=== PATIENT | female | born 1965 | race Caucasian/White ===

== ENCOUNTER → 2025-04-21 | Outpatient (CLI) | payer OTHER, SELFPAY ==
--- NOTE | 2025-04-21 07:59 | MRI_ITS ---
PROCEDURE: UPPER EXT JOINT ONLY(ROUTINE) 04/21/2025 REASON FOR EXAM: LAT EPICONDYLITIS, NO IMPRPVING WITH CONSERV TECHNIQUE: UPPER EXT JOINT ONLY(ROUTINE) Multiplanar and multisequence images were obtained without IV contrast administration. COMPARISON: COMPARISON: January 01, 2025 FINDINGS: Ulnar collateral ligament is intact. Lateral collateral ligamentous complex is intact. Moderate common flexor and extensor tendinopathy at their humeral epicondyle attachments. Biceps, brachialis and triceps tendons are within normal limits. Negative for fracture, marrow edema or marrow replacement. No significant elbow joint effusion. No high-grade arthropathy. No bursal fluid collections. Visualized nerves are within normal limits. MRI/Upper Ext Joint Only(Routine) IMPRESSION: Moderate common flexor and extensor tendinopathy. Reading Location: [facility]
== END | disposition home or self-care (01) ==
LOC: MRI 07:58
PROVIDERS: PCP Family Medicine; Referring Provider Nurse Practitioner Family; Visit Provider Nurse Practitioner Family
DX: M77.02 Medial epicondylitis, left elbow (principal); M77.12 Lateral epicondylitis, left elbow
CPT/HCPCS: 73221

== ENCOUNTER 2025-05-28 10:30 | Outpatient (RCR) | payer OTHER, SELFPAY ==
--- NOTE | 2025-05-28 10:52 | HP.PTREVAL_ITS ---
Re-Evaluation Intro: Ayla Tristan, LARISSA-C, It has been my pleasure to treat PHILIP RODRÍGUEZ over the last 5 visits for L lateral epicondylitis. Please see the progress note below for an update on the physical therapy plan of care! Subjective Subjective: Pt. reports having increased pain with L elbow pain over the past few days. Pt. reports no N/T, but had mild increase in symptoms after stretching. Pt. reports overall not much change in symptoms with PT thus far. Objective Objective/Function: Pt. tolerated EPAT this date without adverse reaction. Pt. continues to be tender along her L elbow. Pt. reports stretching has not improved her symptoms and actually makes her symptoms worse. I talked to her about eccentrics today as well. I gave her 2# wrist eccentric extension today. She is to work on this at home. Pt. is to follow up with physician later today. I advised her to talk with her and trial eccentrics. Pt. consents. She does have some anterior elbow pain, not sure the cause, possibly due to tightness without straightening elbow out much. Plan Plan Plan: pt. to follow up with physician and trial eccentrics I at this point in ti me. Goals Goals Goal 1:: Patient will report no pain in the left elbow Goal Progress: Not Progressing Anticipated Interventions Anticipated Interventions Comment: Radial Shock Wave For the Purpose of:: To decrease pain Re-Evaluation Ending Re-evaluation ending: Please do not hesitate to contact me at [phone] by phone or Fax: if you have questions or concerns regarding this new plan of care! Sincerely, Nicholas Hicks DPT
--- NOTE | 2025-10-25 10:42 | HP.PT.NRP ---
Patient Information Patient Information: PHILIP RODRÍGUEZ was seen in my office for initial evaluation on . The following Plan of Care was established for this patient: Anticipated Interventions Comment: Radial Shock Wave For the Purpose of:: To decrease pain Last Seen Last Seen: This patient was last seen in our office . Pertinent comments regarding their Physical therapy will appear below: Pt appropriate to be d/c at this time- return to MD for further evaluation At this point I will be discontinuing this patient from physical therapy. I would be happy to see this patient again in the future if found appropriate by the physician. Thank you! OLINDA ParkerT
== END 2025-05-28 19:00 | disposition home or self-care (01) ==
LOC: PT 10:30
PROVIDERS: PCP Family Medicine; Referring Provider Nurse Practitioner Family; Visit Provider Nurse Practitioner Family
DX: M77.12 Lateral epicondylitis, left elbow (principal)

== ENCOUNTER 2025-07-11 09:42 | Day surgery (SDC) | payer OTHER, SELFPAY ==
--- NOTE | 2025-07-02 13:08 | PAT.ANE_ITS ---
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 When Was Last Pacemaker Check QUESTION #4 FULL TEXT: You/Your Family Experience fever (hyperthermia) with Anesthesia Last Oral Intake Last Oral intake: Last Oral Intake NPO since Meds taken in AM with sips of water? 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 Female Yes 07/02/25 11:01 HX of Motion Sickness No 07/02/25 11:01 HX of N/V After Surgery No 07/02/25 11:01 Non-Smoker Yes 07/02/25 11:01 Duration of Surgery greater Yes 07/02/25 11:01 than 60 minutes Number of Risk Factors 3 07/02/25 11:01 PONV Score Moderate Risk 07/02/25 11:01 Height & Weight Height & Weight: Anesthesia: Height & Weight Height 5 ft 8 in 03/28/25 07:58 Respiratory Assessment Respiratory Assessment - concrete grinder operator: Respiratory Tract Infection Hx - concrete grinder operator Hx Respiratory Tract Infection No 07/02/25 11:01 STOP Sleep Apnea STOP Sleep Apnea - concrete grinder operator: STOP Sleep Apnea - concrete grinder operator Hx Hypertension Yes: CONTROLLED WITH MED 07/02/25 11:01 Hx Sleep Apnea Yes 07/02/25 11:01 CPAP Yes 07/02/25 11:01 BIPAP No 07/02/25 11:01 Do you snore loudly (louder than talking or can be heard Do you often feel tired/ fatigued/ sleepy during daytime? Has anyone observed you stop breathing during sleep? STOP Results Positive 07/02/25 11:01 QUESTION #5 FULL TEXT : Do you snore loudly (louder than talking or can be heard through closed doors)? 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 Specify any problems Hx of Preganancy in last 3 No 07/02/25 11:01 Months Nurse Filling Out Transfusion DSCHRIBER 07/02/25 11:01 & Questions: Date: 07/02/25 07/02/25 11:01 Time: 11:03 07/02/25 11:01 Patient unable to answer at this time (ie. confused, unrespo /Reproduction History /Reproductive History - concrete grinder operator: /Reproductive Hx- concrete grinder operator Hx Now No 07/02/25 11:01 Gestational Age (in weeks): EDC: Hx Hx Para Hx Section SAB No 07/02/25 11:01 [facility] Medical History (Updated 07/02/25 @ 11:17 by Gertrude Dennis) Wears glasses Post-menopausal High cholesterol History of steroid therapy Back pain Seizures History of IBS Shortness of breath on exertion CPAP (continuous positive airway pressure) dependence Non-smoker History of pain when walking History of edema History of echocardiogram History of stress test Cardiology follow-up encounter Hypertension Hx of low back pain Afib Home Medications ?Medication ?Instructions ?Recorded ?Last Taken ?Type divalproex 250 mg tablet,extended 250 mg PO DAILY 12/09 10/24 Unknown History release 24 hr atorvastatin 20 mg tablet 20 mg PO QDAY 01/01/25 Unkno wn History furosemide 20 mg tablet 20 mg PO BID 01/01/25 Unknow n History potassium citrate 99 mg capsule 99 mg PO DAILY 5 Unknown History sotalol 120 mg tablet 120 mg PO BID 01/01/25 Unkno wn History apixaban 5 mg tablet (Eliquis) 5 mg PO BID 03/28/25 Un known History cyclobenzaprine 10 mg tablet 10 mg PO .prn PRN muscle spasm #30 03/28/25 Unknown Rx tabs psyllium husk 0.52 gram capsule 0.52 g PO DAILY Unknown History (Daily Fiber) biotin 10,000 mcg-keratin 100 mg 1 tab PO DAILY Unknown History tablet (Biotin Plus Keratin) magnesium glycinate 100 mg (as 100 mg PO DAILY 5 Unknown History glycinate) tablet (Mag Glycinate) Allergy/AdvReac Type Severity Reaction Status Date / Time contact metal agent Allergy Rash Verified 07/02/25 10:57 Penicillins Allergy Rash Verified 07/02/25 10:57 Sulfa (Sulfonamide Allergy Rash Verified 07/02/25 10:57 Antibiotics) adhesive tape AdvReac Other Verified 07/02/25 10:57 silver (From Argentum AdvReac Unknown Verified 07/02/25 10:57 Metallicum) Family History Mother Hypertension Father Hypertension Sister Hypertension Other Arthritis Surgical History (Updated 07/02/25 @ 11:12 by Gertrude Dennis) History of cardiac catheterization History of esophagogastroduodenoscopy (EGD) Hx of colonoscopy History of rotator cuff surgery History of cardiac radiofrequency ablation History of shoulder surgery History of hysterectomy Social History Smoking Status: Never smoker alcohol intake: current alcohol intake frequency: holidays/special occasions only Audit: Pertinent Findings Pertinent Findings EKG Perinent findings: 03/06/2025. Normal sinus rhythm 69 bpm. Stress test pertinent findings: 06/24/2020. Negative. EF 72%. Echo (EF%) pertinent findings: 2024. EF 55 to 60%. Normal size and function. Consult pertinent findings: [facility] 05/25/2025. Atrial fibrillation/paroxysmal. Currently in sinus. On Eliquis. Stable. Recommendation Anesthesia Recommendation Anesthesia recommendation: OPTIMIZED for anesthesia
[2025-07-11] VITALS (12 sets, daily range): BP systolic 124–157; BP diastolic 58–100; PULSE 55–74; RESP 14–18; TEMP 36.2–36.9; O2SAT 92–100; BMI 43.5
--- NOTE | 2025-07-11 12:16 | PCM.PRE.AN2 ---
ASA Classification* ASA Classification ASA Classification: 3 Assessment & Plan Anesthesia* Anesthesia Assessment Anesthesia Assessment: Discussed sedation and/or anesthesia options, risks, benefits, and alternatives with patient/parents/legal guardian/POA. Questions invited. The patient/parents/legal guardian/POA seems to understand and agrees to proceed with anesthesia plan. Reviewed the physical assessment, medical history, allergy history and patient home medications list prior to surgery/procedure/anesthetic and documented any changes. Performed airway and anesthesia risk assessments. Anesthesia Type Anesthesia Type: General History Source History Obtained from:: Patient and Chart Anesthesia Focused Assessment* Temperature: 97.5 F Pulse Rate: 58 Blood Pressure: 124/58 Respiratory Rate: 18 Pulse Ox: 98 Oxygen Delivery Method: Room Air Airway Assessment Mouth opens: >3 cm Mallampati Score: II Labs Anesthesia Preop lab: CBC WBC, (4.4-11.0) 11.1 K/mm3 H 12/19/13, 05:30 RBC, (4.2-5.4) 4.50 M/mm3 12/19/13, 05:30 Hgb, (12.0-15.0) 12.0 g/dl 12/19/13, 05:30 Hct, (37-47) 37.3 % 12/19/13, 05:30 Plt Count, (150-450) 257 K/mm3 12/19/13, 05:30 CHEMISTRY Creatinine, (0.6-1.0) 0.8 mg/dL 12/19/13, 05:30 COAG PT, (11.9-14.4) 12.5 SECONDS 12/11/13, 14:10 Pre-Assessment Diagnosis/Proposed Procedure Planned Operative Procedure(s): LEFT ELBOW ARTHROSCOPY DEBRIDEMENT Anesthesia History 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 When Was Last Pacemaker Check QUESTION #4 FULL TEXT: You/Your Family Experience fever (hyperthermia) with Anesthesia Last Oral Intake Last Oral intake: Last Oral Intake NPO since 07:30 07/11/25 11:52 Meds taken in AM with sips of Yes 07/11/25 11:52 water? 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 - refuse collector Female Yes 07/02/25 11:01 HX of Motion Sickness No 07/02/25 11:01 HX of N/V After Surgery No 07/02/25 11:01 Non-Smoker Yes 07/02/25 11:01 Duration of Surgery greater Yes 07/02/25 11:01 than 60 minutes Number of Risk Factors 3 07/02/25 11:01 PONV Score Moderate Risk 07/02/25 11:01 Height & Weight Height & Weight: Anesthesia: Height & Weight Height 5 ft 8 in 07/11/25 11:52 Weight: 130 kg 07/11/25 11:52 Body Mass Index (BMI) 43.5 07/11/25 11:52 Respiratory Assessment Respiratory Assessment - refuse collector: Respiratory Tract Infection Hx - refuse collector Hx Respiratory Tract Infection No 07/02/25 11:01 STOP Sleep Apnea STOP Sleep Apnea - refuse collector: STOP Sleep Apnea - refuse collector Hx Hypertension Yes: CONTROLLED WITH MED 07/02/25 11:01 Hx Sleep Apnea Yes 07/02/25 11:01 CPAP Yes 07/02/25 11:01 BIPAP No 07/02/25 11:01 Do you snore loudly (louder than talking or can be heard Do you often feel tired/ fatigued/ sleepy during daytime? Has anyone observed you stop breathing during sleep? STOP Results Positive 07/02/25 11:01 QUESTION #5 FULL TEXT : Do you snore loudly (louder than talking or can be heard through closed doors)? 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 Specify any problems Hx of Preganancy in last 3 No 07/02/25 11:01 Months Nurse Filling Out Transfusion DSCHRIBER 07/02/25 11:01 & Questions: Date: 07/02/25 07/02/25 11:01 Time: 11:03 07/02/25 11:01 Patient unable to answer at this time (ie. confused, unrespo /Reproduction History /Reproductive History - refuse collector: /Reproductive Hx- refuse collector Hx Now No 07/02/25 11:01 Gestational Age (in weeks): EDC: Hx Hx Para Hx Section SAB No 07/02/25 11:01 Active Medications Active Medications: Current Medications Generic Name Dose Route Start Last Admin Trade Name Freq PRN Reason Stop Dose Admin Cefazolin Sodium 3 gm/ Sodium 115 mls @ 200 mls/hr 07/11/25 13:00 07/11/25 11:50 Chloride IV 07/11/25 13:34 Not Given INTRAOP ONE Lactated Ringer's 1,000 mls @ 15 mls/hr 07/11/25 11:45 IV .Q48H MAXWELL PFSH Medical History Wears glasses Post-menopausal High cholesterol History of steroid therapy Back pain Seizures History of IBS Shortness of breath on exertion CPAP (continuous positive airway pressure) dependence Non-smoker History of pain when walking History of edema History of echocardiogram History of stress test Cardiology follow-up encounter Hypertension Hx of low back pain Afib Home Medications ?Medication ?Instructions ?Recorded ?Last Taken ?Type divalproex 250 mg tablet,extended 250 mg PO DAILY 12/19/13 07/11/25 History release 24 hr atorvastatin 20 mg tablet 20 mg PO QDAY 01/01/25 07/10/25 History furosemide 20 mg tablet 20 mg PO BID 01/01/25 07/10/25 History potassium citrate 99 mg capsule 99 mg PO DAILY 01/01/25 07/07/25 History sotalol 120 mg tablet 120 mg PO BID 01/01/25 07/11/25 History apixaban 5 mg tablet (Eliquis) 5 mg PO BID 03/28/25 07/06/25 History cyclobenzaprine 10 mg tablet 10 mg PO .prn PRN muscle spasm #30 03/28/25 Unknown Rx tabs psyllium husk 0.52 gram capsule 0.52 g PO DAILY 03/28/25 07/10/25 History (Daily Fiber) biotin 10,000 mcg-keratin 100 mg 1 tab PO DAILY 07/02/25 07/06/25 History tablet (Biotin Plus Keratin) magnesium glycinate 100 mg (as 100 mg PO DAILY 07/02/25 07/06/25 History glycinate) tablet (Mag Glycinate) Allergy/AdvReac Type Severity Reaction Status Date / Time contact metal agent Allergy Rash Verified 07/11/25 11:50 Penicillins Allergy Rash Verified 07/11/25 11:50 Sulfa (Sulfonamide Allergy Rash Verified 07/11/25 11:50 Antibiotics) adhesive tape AdvReac Other Verified 07/11/25 11:50 silver (From [employer] AdvReac Unknown Verified 07/11/25 11:50 Metallicum) Family History Mother Hypertension Father Hypertension Sister Hypertension Other Arthritis Surgical History History of cardiac catheterization History of esophagogastroduodenoscopy (EGD) Hx of colonoscopy History of rotator cuff surgery History of cardiac radiofrequency ablation History of shoulder surgery History of hysterectomy Social History Smoking Status: Never smoker alcohol intake: current alcohol intake frequency: holidays/special occasions only Addt'l Information Additional Findings: NSR; >4 Mets Review of Systems (Anesthesia) ROS Narrative System reviewed and no additional complaints, except as documented. Physical Exam Const alert and oriented x3 Nutritional Appearance: morbidly obese Resp normal respiratory effort and normal air movement Auscultation: clear to auscultation bilaterally Cardio regular rate and regular rhythm Back/Spine normal ROM Neuro oriented x3 and moves all extremities
--- NOTE | 2025-07-11 12:19 | PCM.HP.STD ---
HPI - General HPI Narrative PHILIP RODRÍGUEZ, is a 60 F who presents for left elbow arthroscopy, debridement. rab, post op instructions, narcotic counselling. no changes to h and p. elbow marked. ok to proceed. plan for block. MR#: [id number] Acct: [id number] Name: PHILIP RODRÍGUEZ Rep #: [id number] : 1965 Provider: Dr. Josh Cartagena MD Age/Sex: 60/F Location: [facility] [place] Status: Signed Intake Vital Signs 03/28/2507:58 Height 5 ft 8 in Intake Visit Reasons: LEFT ELBOW Chief Complaint: Left Elbow Pain Accompanied by: Self Is patient in pain?: Yes (Achy) Pain scale (1-10): 3 Allergies contact metal agent Allergy (Verified 06/04/25 08:08) Rash Penicillins Allergy (Verified 06/04/25 08:08) Rash Sulfa (Sulfonamide Antibiotics) Allergy (Verified 06/04/25 08:08) Rash adhesive tape Adverse Reaction (Verified 06/04/25 08:08) Other silver (From Argentum Metallicum) Adverse Reaction (Verified 06/04/25 08:08) Unknown Medications ?Medication ?Instructions ?Recorded ?Confirmed ?Type divalproex 250 mg tablet,extended 250 mg PO QODAY 12/19/13 06/04/25 History release 24 hr atorvastatin 20 mg tablet 20 mg PO QDAY 01/01/25 06/04/25 History furosemide 20 mg tablet 20 mg PO BID 01/01/25 06/04/25 History potassium citrate 99 mg capsule mg PO 01/01/25 06/04/25 History sotalol 120 mg tablet 120 mg PO BID 01/01/25 06/04/25 History apixaban 5 mg tablet (Eliquis) 5 mg PO BID 03/28/25 06/04/25 History cyclobenzaprine 10 mg tablet 10 mg PO .prn PRN muscle spasm #30 03/28/25 06/04/25 Rx tabs magnesium hydroxide 400 mg/5 mL 5 ml PO ONCE 03/28/25 06/04/25 History oral suspension (Dulcolax (magnesium hydroxide)) psyllium husk 0.52 gram capsule 0.52 g PO ONCE 03/28/25 06/04/25 History (Daily Fiber) PFSH Medical History Afib Surgical History History of cardiac radiofrequency ablation History of shoulder surgery History of hysterectomy Family History Mother Hypertension Father Hypertension Sister Hypertension Other Arthritis Social History Smoking Status: Never smoker alcohol intake: current alcohol intake frequency: holidays/special occasions only HPI LEFT ELBOW Details: This documentation accurately reflects the service provided and the decisions made by me, Dr. Josh Cartagena MD 06/04/25 0804. Part of today?s visit was documented by [ ], acting as scribe. PHILIP RODRÍGUEZ is a 60 year old F here today for left elbow lateral epicondylitis. Does [employer]. RHD. 8 months hx. no trauma. lateral side pain going down dorsum of the forearm. no numbness tingling. did 3 months of PT. had a lateral cortisone injection 6 months ago. helped for a couple days only. been doign ESWT with only partial response. Ortho Exam General General: Yes no acute distress Neurologic: Yes alert and Yes oriented x3 Psychologic: Yes reasonable and appropriate Left Elbow Skin/Wound: Yes CDI, No eccymosis, No erythema and No Swelling Test: No Valgus Stress Test, No Varus Stress Test, No TTP Medial Epicondyle, Yes TTP Lateral Epicondyle, No Pain w/ resist wrist flex, Yes Pain w/ resist 3rd dig ext, No Thenar Atrophy and No Hypothenar Atrophy ROM: Yes Flexion 0-140, Supination 0-90 and Pronation 0-80 Sensation: Radial: I, Ulnar: I and Median: I Motor: Elbow Extension: 5, Elbow Flexion: 5, EPL: 5, FDP-2: 5 and 1st Dorsal Interosseous: 5 Supplemental Info [facility] Imaging Services [address] [place] [address] Elbow min 3 Views MR#: [id number] Acct: [id number] Name: PHILIP RODRÍGUEZ Rep #: [id number] : 1965 F 59 From: Lamberto Dahl MD PCP: Status: DEP AMB Study: Elbow min 3 Views Date of Exam: 01/01/25 Exam# [id number] Ordering Dr: Ayla Tristan EXAM: XR Left Elbow Complete, 3 or More Views CLINICAL INDICATION: PAIN, NO INJURY TECHNIQUE: Frontal, lateral and oblique views of the left elbow. COMPARISON: No relevant prior studies available. FINDINGS: BONES/JOINTS: Unremarkable. No acute fracture. No dislocation. SOFT TISSUES: Unremarkable. RAD/Elbow min 3 Views IMPRESSION: No acute fracture. Reading Location: [facility] Imaging Services [address] [place], [place] [id number] Upper Ext Joint Only(Routine) MR#: [id number] Acct: [id number] Name: PHILIP RODRÍGUEZ Rep #: [id number] : 1965 F 59 From: Adam Pretty DO PCP: Dr. Tima Power MD Status: REG CLI Study: Upper Ext Joint Only(Routine) Date of Exam: 04/21/25 Exam# [id number] Ordering Dr: Ayla Tristan PROCEDURE: UPPER EXT JOINT ONLY(ROUTINE) 04/21/2025 REASON FOR EXAM: LAT EPICONDYLITIS, NO IMPRPVING WITH CONSERV TECHNIQUE: UPPER EXT JOINT ONLY(ROUTINE) Multiplanar and multisequence images were obtained without IV contrast administration. COMPARISON: COMPARISON: January 01, 2025 FINDINGS: Ulnar collateral ligament is intact. Lateral collateral ligamentous complex is intact. Moderate common flexor and extensor tendinopathy at their humeral epicondyle attachments. Biceps, brachialis and triceps tendons are within normal limits. Negative for fracture, marrow edema or marrow replacement. No significant elbow joint effusion. No high-grade arthropathy. No bursal fluid collections. Visualized nerves are within normal limits. MRI/Upper Ext Joint Only(Routine) IMPRESSION: Moderate common flexor and extensor tendinopathy. Reading Location: [facility] Coding Level of Care Code Off vis,est,level 4 Diagnoses Left lateral epicondylitis M77.12 Assessment and Plan Assessment and Plan (1) Left lateral epicondylitis: Status: Acute Plan: PHILIP RODRÍGUEZ is a 60 year old F here today for left elbow lateral epicondylitis. We discussed options here for ongoing conservative management versus arthroscopic surgery. Patient understands wished to go ahead with left elbow arthroscopy, debridement. 2 weeks to heal the incision 6 weeks before going back to any sort of significant heavy lifting pushing pulling or repetitive activities like driving. Patient understands the risks and wants to go ahead with surgery. Pros and cons risks and benefits were discussed with the patient including but not limited to infection, pain, stiffness, bleeding, damage to surrounding structures, neurovascular injury, recurrence or retear, failure or wear of hardware or fixation, instability, fracture, deep vein thrombosis and pulmonary embolism, anesthetic risks, , patient dissatisfaction, need for further surgery and other risks. Patient understood and wished to proceed with surgery, and signed the informed consent documentation. 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 Need clearance, on eliquis. Incr. risk due to this. Had a recent ablation, need to make sure stable before surgery. Tennis elbow, or lateral epicondylitis, can be treated through both non-surgical and surgical options. Non-surgical treatments often include rest, ice application, physical therapy, anti-inflammatory medications, and the use of braces to alleviate stress on the elbow. In more severe cases, corticosteroid injections or platelet-rich plasma (PRP) therapy might be considered to promote healing. If these conservative methods fail, surgical intervention may be necessary. Surgical options typically involve removing damaged tissue or repairing tendons through either traditional open surgery or minimally invasive arthroscopic techniques. The choice between non-surgical and surgical treatments depends on the severity of the condition and the patient's response to initial therapies. FORMERLY [facility], [facility] Medical History Wears glasses Post-menopausal High cholesterol History of steroid therapy Back pain Seizures History of IBS Shortness of breath on exertion CPAP (continuous positive airway pressure) dependence Non-smoker History of pain when walking History of edema History of echocardiogram History of stress test Cardiology follow-up encounter Hypertension Hx of low back pain Afib Home Medications ?Medication ?Instructions ?Recorded ?Last Taken ?Type divalproex 250 mg tablet,extended 250 mg PO DAILY 12/19/13 07/11/25 History release 24 hr atorvastatin 20 mg tablet 20 mg PO QDAY 01/01/25 07/10/25 History furosemide 20 mg tablet 20 mg PO BID 01/01/25 07/10/25 History potassium citrate 99 mg capsule 99 mg PO DAILY 01/01/25 07/07/25 History sotalol 120 mg tablet 120 mg PO BID 01/01/25 07/11/25 History apixaban 5 mg tablet (Eliquis) 5 mg PO BID 03/28/25 07/06/25 History cyclobenzaprine 10 mg tablet 10 mg PO .prn PRN muscle spasm #30 03/28/25 Unknown Rx tabs psyllium husk 0.52 gram capsule 0.52 g PO DAILY 03/28/25 07/10/25 History (Daily Fiber) biotin 10,000 mcg-keratin 100 mg 1 tab PO DAILY 07/02/25 07/06/25 History tablet (Biotin Plus Keratin) magnesium glycinate 100 mg (as 100 mg PO DAILY 07/02/25 07/06/25 History glycinate) tablet (Mag Glycinate) Allergy/AdvReac Type Severity Reaction Status Date / Time contact metal agent Allergy Rash Verified 07/11/25 11:50 Penicillins Allergy Rash Verified 07/11/25 11:50 Sulfa (Sulfonamide Allergy Rash Verified 07/11/25 11:50 Antibiotics) adhesive tape AdvReac Other Verified 07/11/25 11:50 silver (From Argentum AdvReac Unknown Verified 07/11/25 11:50 Metallicum) Family History Mother Hypertension Father Hypertension Sister Hypertension Other Arthritis Surgical History History of cardiac catheterization History of esophagogastroduodenoscopy (EGD) Hx of colonoscopy History of rotator cuff surgery History of cardiac radiofrequency ablation History of shoulder surgery History of hysterectomy Social History Smoking Status: Never smoker alcohol intake: current alcohol intake frequency: holidays/special occasions only Vital Signs Vital Signs Vital Signs: 07/11/25 11:52 07/11/25 11:52 Temperature 97.5 F L Temperature Source Temporal Pulse Rate 58 L Respiratory Rate 18 Respiratory Pattern Normal Blood Pressure 124/58 H Blood Pressure Mean 80 Blood Pressure Source Monitor Blood Pressure Position Semi-Fowlers Blood Pressure Location Right Forearm Pulse Ox 98 Oxygen Delivery Method Room Air Weight Weight: 286 lb 9.615 oz Body Mass Index (BMI) 43.5
[2025-07-11] MEDS: Lactated Ringers 1,000 ML 1000 ML IV (12:40)
[2025-07-11] MEDS: Cefazolin 1 GM/5 ML Vial 3 GM IV (12:46)
[2025-07-11] MEDS: Midazolam 2 MG/2 ML Syringe IV (12:55)
[2025-07-11] MEDS: Lidocaine 1% (5 ml sdv) 5 ML Vial IV (12:55)
[2025-07-11] MEDS: Epinephrine (1 mg/ml) 1 MG/ML VIAL (13:20)
[2025-07-11] MEDS: dexMEDEtomidine 200 MCG/2 ML ML 8 MCG IV (13:28)
[2025-07-11] MEDS: fentaNYL 100 MCG/2 ML Ampul IV (13:36)
--- NOTE | 2025-07-11 13:53 | DCINST_ITS ---
Discharge Instructions Diet Discharge Diet: No restrictions Activity Discharge Activity: May Shower Ice area for (Minutes): 10 Lifting Restrictions: gentle rom only, wear sling and rest most of the day Additional Activity Instructions:: ok to remove sling at rest, Dressing / Incision Call your doctor if your incision/area has: Continuous Slow Oozing, Sudden Increased Bleeding, Increased Pain/ Swelling, Increased Redness, Foul Smelling Discharge and Swelling at the incision site Call your doctor if you observe: Fever of 101 or Higher, Coldness, Increased Pain and Numbness or Tingling Remove Dressing in: leave in place till F/U Cleanse incision/area with: Do not get Incision Wet Additional Dressing/Incision Instructions:: ok to unwrap, keep incisions covered Follow Up Care Please Follow Up With: Josh Cartagena MD When: within 2 weeks Test Results: Test results from this visit will be discussed in further detail at your follow- up appointment, if applicable. Discharge Plan Admission Attending Provider: Josh Cartagena Primary Care Provider: Tima Power Instructions Patient Instructions: After Elbow Arthroscopy Print Language: Dutch Discharge Orders/Prescriptions Prescriptions: New oxycodone-acetaminophen [Endocet] 5-325 mg tablet 1 tab PO Q4H MDD 6 PRN (Reason: pain) 3 Days Qty: 14 0RF No Action sotalol 120 mg tablet 120 mg PO BID furosemide 20 mg tablet 20 mg PO BID atorvastatin 20 mg tablet 20 mg PO QDAY potassium citrate 99 mg capsule 99 mg PO DAILY Eliquis 5 mg tablet 5 mg PO BID psyllium husk [Daily Fiber] 0.52 gram capsule 0.52 g PO DAILY cyclobenzaprine 10 mg tablet 10 mg PO .prn MDD 3 tablets PRN (Reason: muscle spasm) Qty: 30 0RF Rx Instructions: Take 1 tablet night before and 1 tablet 1 hour before scheduled MRI. Do not drive, operate machinery or perform safety sensitive work within 1 hour of dosing. May take 1/2 to 1 tablet as needed for muscle tightness, spasms or pain every 8 hours as needed. divalproex 250 MG tablet 250 mg PO DAILY Patient Comments: SEIZURES Mag Glycinate 100 mg tablet 100 mg PO DAILY biotin-keratin [Biotin Plus Keratin] 10,000-100 mcg-mg tablet 1 tab PO DAILY Referrals / Follow Up: Josh Cartagena MD [Med Staff - Active Staff, Orthopedics] Tima Power MD [Primary Care Provider, Medical] Disposition Disposition (needs filled in before D/C Order can be placed): Home, Self Care
--- NOTE | 2025-07-11 13:55 | OP.PCM_ITS ---
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 Industrial Relations Worker: warren Tasks completed by inventory control assistant: Retracting Additional inventory control assistant?: No Type of Anesthesia: General and Local RN Documented Start/Stop Times: Operation Date: 07/11/25 13:10 Case Time Into Pre-Op 07/11/25 11:34 Out of Pre-Op 07/11/25 12:41 Anesthesia Start 07/11/25 12:46 Into Room 07/11/25 12:46 Procedure Start 07/11/25 13:20 Procedure End 07/11/25 13:51 Procedure Start Time: 13:20 Procedure Stop Time: 13:51 Select all DRAINS/GRAFTS/IMPLANTS that apply: None Estimated Blood Loss: 25 Specimen collected: No Description of surgery: Patient brought to the operating room theater. Placed supine on the table. General anesthesia induced. 3 g of IV Ancef administered prior to the start of the procedure. Patient transferred to the left side up lateral decubitus beanbag positioner. Axillary roll placed. All bony prominences padded. SCDs on the leg. Arm positioner and foam positioning device the elbow in a slight amount of flexion and used a 24 inch tourniquet. Upper extremity prepped and draped in the usual sterile fashion allowing over 3 minutes drying time prior to draping. Preoperative timeout performed to confirm the site patient and the surgery. Began by elevating the limb inflating the tourniquet to 250 mmHg. Use standard proximal anteromedial and proximal anterolateral portals. Established the proximal anteromedial portal first. Identified the ulnar nerve protected that. Made sure to stay anterior to the intermuscular septum. Made a small alethea in the skin and spread this apart. I insufflated the joint with 25 cc of normal saline. Had to make a separate alethea to achieve a better angle to the joint, given soft tissue envelope. I then used a Kaycee instrument to access the joint spread that apart confirm intra-articular with fluid back. Next placed the scope in the intra-articular aspect of the elbow. Also used a direct lateral portal / soft spot portal. Did a full diagnostic arthroscopy. Cartilage on all 3 surfaces appeared normal. Normal motion of the radial head. I then established a lateral portal through inside-out spinal needle localization. I inserted the shaving instrument through the proximal anterolateral portal. I removed a triangular portion of tissue at the lateral aspect of the elbow ensuring to stay above the equator to protect the lateral ulnar collateral ligament. I debrided the tendinous tissue until I could see muscle superficial to this and then stop the debridement as well as doing some mild debridement at the bony surface at the proximal origin of the common extensor tendon. Arthroscopy pictures taken and saved throughout the case. Scope withdrawn tourniquet let down hemostasis achieved. Wound thoroughly irrigated subcutaneous tissue closed with 3-0 Monocryl and Steri-Strips followed by 15 cc quarter percent bupivacaine. Then placed Adaptic 4 x 4 gauze ABD dressing Mendy wrap and Dontrell bandage loosely wrapped with a sling for the upper extremity. Patient woken up from the general anesthetic transferred off the operating table taken to postanesthetic care unit in stable condition. All sponge needle instrument counts were correct no complications. Plan to the patient gentle range of motion discharge home according to day surgery criteria. CPT 21845 Surgical Findings: as above Complications Complications: No Admit VTE Documentation VTE Present on Admission: No VTE Mechan Device Prophylaxis: SCD's VTE Pharm Prophylaxis ordered?: No Reason prophylaxis not ordered: Treatment Not Indicated
--- NOTE | 2025-07-11 14:04 | PCM.POST.ANE ---
Anesthesia: Postop Eval I Current Vital Signs Temperature: 97.4 F Pulse Rate: 68 Blood Pressure: 150/90 Respiratory Rate: 16 Pulse Ox: 95 Assessment Airway patent: Yes Spontaneous unlabored respirations: Yes nausea: No Vomiting: No Anesthesia Complication: No Fluid Hydration Crystalloid volume administer (ml): 1,000 Total IV fluid infused: 1,000 Progress Note Anesthesia document: Postop Eval 1 completed: Yes
--- NOTE | 2025-07-11 14:29 | POSTOPAN2_ITS ---
Anesthesia Postop Eval I Sum Postop Eval Completion status Anesthesia document: Postop Eval 1 completed: Yes Anesthesia Postop Eval I Summary Anesthesia Postop Eval I Summary: Anesthesia Postop Eval I: Assessment Summary Airway patent Yes 07/11/25 14:04 DRUM [email or web address] Spontaneous unlabored Yes 07/11/25 14:04 DRUM [email or web address] respirations Mental status nausea No 07/11/25 14:04 DRUM [email or web address] Vomiting No 07/11/25 14:04 DRUM [email or web address] Anesthesia Postop Eval I: Fluid Summary Crystalloid volume administer 1,000 07/11/25 14:04 DRUM [email or web address] (ml) Colloids volume administered ( ml) Blood Product volume administered (ml) Total IV fluid infused 1,000 07/11/25 14:04 DRUM [email or web address] Anesthesia Postop Eval I: Summary Notes Anesthesia Complication No 07/11/25 14:04 DRUM [email or web address] Anesthesia Complication Comment: Post-operative progress note Anesthesia: Postop Eval II Evaluation Mental status: Awake and Calm Pain Level: 4 nausea: No Vomiting: No Complications Anesthesia Complication: No
--- NOTE | 2025-07-11 14:29 | PCM.POSTANE2 ---
Anesthesia Postop Eval I Sum Postop Eval Completion status Anesthesia document: Postop Eval 1 completed: Yes Anesthesia Postop Eval I Summary Anesthesia Postop Eval I Summary: Anesthesia Postop Eval I: Assessment Summary Airway patent Yes 07/11/25 14:04 CORRECTIONAL [email or web address] Spontaneous unlabored Yes 07/11/25 14:04 CORRECTIONAL [email or web address] respirations Mental status nausea No 07/11/25 14:04 CORRECTIONAL [email or web address].[email or web address] Vomiting No 07/11/25 14:04 CORRECTIONAL [email or web address].TNES Anesthesia Postop Eval I: Fluid Summary Crystalloid volume administer 1,000 07/11/25 14:04 CORRECTIONAL [email or web address].TNES (ml) Colloids volume administered ( ml) Blood Product volume administered (ml) Total IV fluid infused 1,000 07/11/25 14:04 CORRECTIONAL [email or web address].TNES Anesthesia Postop Eval I: Summary Notes Anesthesia Complication No 07/11/25 14:04 CORRECTIONAL [email or web address].[email or web address] Anesthesia Complication Comment: Post-operative progress note Anesthesia: Postop Eval II Evaluation Mental status: Awake and Calm Pain Level: 4 nausea: No Vomiting: No Complications Anesthesia Complication: No
[2025-07-11] MEDS: HYDROcodone Bitartrate/Apap 5/325 Tablet PO (15:36)
== END 2025-07-11 17:02 | disposition home or self-care (01) ==
LOC: SDC 09:44 → AC 09:45
PROVIDERS: PCP Family Medicine; Referring Provider Orthopaedic Surgery Sports Medicine; Visit Provider Orthopaedic Surgery Sports Medicine
PROC: (CPT 29830; principal; 2025-07-11 12:55)
DX: M77.12 Lateral epicondylitis, left elbow (principal); I48.91 Unspecified atrial fibrillation; E78.00 Pure hypercholesterolemia, unspecified; I10 Essential (primary) hypertension; Z79.01 Long term (current) use of anticoagulants; Z79.899 Other long term (current) drug therapy
CPT/HCPCS: 29837; 01740; J2405